=== PATIENT | female | born 1965 | race Caucasian/White ===

== ENCOUNTER 2018-04-10 13:19 | Emergency (ER) | payer SELFPAY ==
[2018-04-10] MEDS ORDERED: Aspirin 81 MG Tab.Chew PO ONE (13:24)
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
--- NOTE | 2018-04-10 14:10 | CR ---
EXAMINATION: Portable chest radiograph. HISTORY: Shortness of breath. FINDINGS: The trachea is midline. The cardiomediastinal silhouette is within normal limits. No pulmonary infiltrates, effusions or pneumothorax. Osseous structures appear unremarkable. IMPRESSION: No acute cardiopulmonary process.
[2018-04-10 14:20] LABS: CHLORIDE,CL 104 mmol/L (98-107); SODIUM,NA 142 mmol/L (136-145)
--- NOTE | 2018-04-10 15:35 | CT ---
EXAMINATION: CTA chest HISTORY: Elevated d-dimer COMPARISON: Radiograph from the same day. TECHNIQUE: Axial CT imaging obtained through the chest following the administration of 50 mL of Isovue-370 in the right antecubital fossa. Coronal and sagittal reconstructions obtained. FINDINGS: The lungs are clear without focal consolidation. No pleural effusion or pneumothorax. Mild dependent atelectasis. The central airways are clear. Heart is borderline in size without a pericardial effusion. The thoracic aorta is normal in caliber. Main and central pulmonary arteries are patent without evidence of pulmonary embolism. No mediastinal, hilar, or axillary lymphadenopathy. No suspicious findings within the upper abdomen. Visualized osseous structures appear normal. IMPRESSION: 1. No pulmonary embolism or acute cardiopulmonary finding identified.
[2018-04-10] MEDS ORDERED: Iopamidol 755 MG/ML 500 ML Multipack Bottle IVPUSH ONE (15:56)
== END 2018-04-10 16:28 | disposition home or self-care (01) ==
LOC: EDBD 13:19 → MW.ED 13:19
DX: S20.219A Contusion of unspecified front wall of thorax, initial encounter (principal); N39.0 Urinary tract infection, site not specified; V89.2XXA Person injured in unspecified motor-vehicle accident, traffic, initial encounter
CPT/HCPCS: 36415; 71045; 71275; 80053; 81001; 84484; 85025; 85379; 85610; 87086; 93005; 99285; A9270; Q9967; 87186

== ENCOUNTER 2023-04-27 01:27 | Emergency (ER) | payer OTHER ==
[2023-04-27] MEDS: Nitroglycerin 0.4 MG Tab.SL SL ONE (01:48)
[2023-04-27] MEDS: Aspirin 81 MG Tab.Chew PO ONE (01:48)
[2023-04-27 01:53] LABS: BASOPHILS ABSOLUTE AUTO 0.08 K/uL (0.00-0.20); BASOPHILS PERCENT AUTO 0.6 % (0.0-1.0); EOSINOPHILS ABSOLUTE AUTO 0.21 K/uL (0.00-0.45); EOSINOPHILS PERCENT AUTO 1.7 % (0.0-6.0); HEMOGLOBIN 13.1 g/dL (12.0-16.0); IMMATURE GRAN ABSOLUTE AUTO 0.02 K/uL (0.00-0.05); IMMATURE GRAN PERCENT AUTO 0.2 % (0.0-0.4); LYMPHOCYTES ABSOLUTE AUTO 3.62 K/uL (1.00-4.80); LYMPHOCYTES PERCENT AUTO 29.1 % (24.0-44.0); MEAN CORPUSCULAR HEMOGLOBIN 29.7 pg (28.0-32.0); MEAN CORPUSCULAR HGB CONC 32.8 g/dL (32.0-36.0); MEAN CORPUSCULAR VOLUME 90.7 fL (83.0-99.0); MEAN PLATELET VOLUME 10.5 fL (9.4-12.3); MONOCYTES ABSOLUTE AUTO 0.94 K/uL (0.00-0.80); MONOCYTES PERCENT AUTO 7.6 % (0.0-8.0); NEUTROPHILS ABSOLUTE AUTO 7.58 K/uL (1.80-7.70); NEUTROPHILS PERCENT AUTO 60.8 % (41.0-71.0); PLATELET COUNT,PLT 272 K/uL (150-400); RED BLOOD CELL COUNT 4.41 M/uL (4.10-5.30); WHITE BLOOD CELL COUNT,WBC 12.45 K/uL (3.9-11.3)
[2023-04-27 02:18] LABS: ALBUMIN 3.9 g/dL (3.4-5.0); BILIRUBIN TOTAL 0.3 mg/dL (0.2-1.0); CALCIUM 10.1 mg/dL (8.5-10.1); CARBON DIOXIDE,CO2 27.2 mmol/L (21.0-32.0); CREATININE 0.8 mg/dL (0.6-1.0); EST CRCL DRUG DOSING (CG) 56.43 mL/min; MAGNESIUM 1.9 mg/dL (1.8-2.4); POTASSIUM,K 4.5 mmol/L (3.5-5.1); PROTEIN TOTAL,TP 7.7 g/dL (6.4-8.2)
== END 2023-04-27 02:45 | disposition home or self-care (01) ==
LOC: MW.ED 01:27
DX: R07.9 Chest pain, unspecified (principal); Z79.84 Long term (current) use of oral hypoglycemic drugs; Z79.899 Other long term (current) drug therapy
CPT/HCPCS: 36415; 71045; 80053; 83735; 83880; 84484; 85025; 85610; 85730; 99285; A9270; 93010; 99283